=== PATIENT | male | born 2000 | race African-American/Black ===

== ENCOUNTER 2021-02-23 00:36 | Emergency (ER) | payer BC, SELFPAY ==
--- NOTE | ~2021-02-23 | XR_ITS ---
XR shoulder LT min 2V DATE: 02/23/2021 00:55 INDICATION: Left shoulder injury, pain TECHNIQUE: 4 views COMPARISON: None FINDINGS: No fracture or dislocation, periosteal reaction or bone destruction or abnormal soft tissue calcification. IMPRESSION: Normal examination Reviewed, dictated and finalized at location A. IMPRESSION: Normal examination
[2021-02-23 00:38] VITALS: BP 116/75; PULSE 88; RESP 18; TEMP 36.6; O2SAT 98
--- NOTE | 2021-02-23 00:48 | ED.UPPEXIN ---
HPI - Extremity Injury (Upper) General Chief Complaint: Extremity Injury, Upper Stated Complaint: left shoulder injury Time Seen by Provider: 02/23/21 00:49 Source: patient Mode of arrival: ambulatory Limitations: no limitations History of Present Illness HPI narrative: Patient is a 20-year-old male presenting for evaluation of left shoulder pain. Patient was reportedly wrestling with his friend when he felt his shoulder dislocate. States that he popped it back into place. Patient still with soreness in the left shoulder. Pain is dull, aching in nature. No focal numbness or weakness. No head injury, neck pain or loss of consciousness. Patient has been ambulatory. No lower extremity pain. Right hand dominant. Related Data Allergies Allergy/AdvReac Type Severity Reaction Status Date / Time No Known Allergies Allergy Verified 02/23/21 01:00 Review of Systems Review of Systems: CONSTITUTIONAL: Denies fever CARDIOVASCULAR: Denies chest pain RESPIRATORY: Denies cough or dyspnea. GASTROINTESTINAL: Denies abdominal pain SKIN: Denies rash MUSCULOSKELETAL: Denies back pain, reports left shoulder pain NEUROLOGIC: Denies headache [facility] Social History Social History (Updated 02/23/21 @ 01:04 by Yudith Nicholas MD) Smoking status: Never smoker Alcohol intake: current Substance use: current Substance use type: marijuana Gender identity (if verbalized by the patient): Male Exam Narrative: GENERAL: Awake, alert, conversant HEAD: Normocephalic, atraumatic. EYES: PERRLA and EOMI. ENT: Nares clear, no rhinorrhea or epistaxis. Mucous membranes moist. NECK: Supple. CHEST: No respiratory distress, breathing even and non labored HEART: Regular rate, sinus rhythm ABDOMEN:Non distended, non tender EXTREMITIES: Decreased range of motion secondary to pain. No squaring off of the shoulder. No significant clavicular pain on exam. Intact sensation over the deltoid. Intact distal sensation. Radial pulse 2+. Normal range of motion at the left elbow, left wrist. SKIN: Warm, dry, no rash. NEURO:No focal deficits. Alert and oriented x3 Course Vital Signs Vital signs: Vital Signs Temperature 36.6 C 02/23/21 00:38 Pulse Rate 88 02/23/21 00:38 Respiratory Rate 18 02/23/21 00:38 Blood Pressure 116/75 02/23/21 00:38 Pulse Oximetry 98 02/23/21 00:38 Temperature 36.6 C 10 00:38 Pulse Rate 88 02/23/21 00:38 Respiratory Rate 18 02/23/21 00:38 Blood Pressure 116/75 02/23/21 00:38 Pulse Oximetry 98 10 00:38 MDM - Extremity Injury (Upper) MDM Narrative Medical decision making narrative: Patient presenting for evaluation of left shoulder pain. Concern for possible dislocation and relocation before arrival to the hospital. Imaging is normal. No evidence of dislocation. Patient is neurovascularly intact. Patient be placed in a sling. Given orthopedic follow-up. Advised to take anti-inflammatories for pain. Differential Diagnosis Differential diagnosis: Likely dislocation of shoulder and fracture of humerus Imaging Data My impression: Left shoulder x-ray: No acute dislocation, no acute osseous abnormality clavicles normal, no clavicular fracture Discharge Plan Discharge Clinical Impression: Left shoulder strain Patient Disposition: Home, Self-Care Condition: Stable Instructions: How to Use a Sling (ED), Shoulder Sprain (ED) Additional Instructions: Please contact your primary care physician and orthopedic physician listed on this sheet for follow up from this visit. Please do not do any heavy lifting with the extremity. If you experience worsening pain, vomiting that does not stop, bleeding complications, chest pain, shortness of breath, inability to tolerate your medications please return for reassessment. Take any prescribed medications as directed Stay well-hydrated For fever and pain, you may take Tylenol 500 mg - 1000 mg every 8 hours, and Ibuprofen 400
== END 2021-02-23 01:11 | disposition home or self-care (01) ==
PROVIDERS: Emergency Provider Emergency Medicine
DX: S46.912A Strain of unspecified muscle, fascia and tendon at shoulder and upper arm level, left arm, initial encounter (principal); Y93.83 Activity, rough housing and horseplay; X50.9XXA Other and unspecified overexertion or strenuous movements or postures, initial encounter
CPT/HCPCS: 73030; 99283; A4565

== ENCOUNTER 2022-06-02 05:11 | Emergency (ER) | payer BC, SELFPAY ==
--- NOTE | ~2022-06-02 | CT_ITS ---
EXAMINATION: CT abdomen pelvis wo con DATE: 06/02/2022 07:39 INDICATION: Left flank pain. Nausea. TECHNIQUE: Computed tomography (CT) of the abdomen and pelvis was performed without intravenous contr ast. Automated exposure control and iterative reconstruction technique were employed. The dose-length product was 270.85 mGy-cm. COMPARISON: None. FINDINGS: The visualized portions of the lung bases are clear without pneumonia or pleural effusion. The heart size is normal. No pericardial effusion. The liver, gallbladder, spleen, pancreas, adrenal glands, and right kidney are normal. There is mild left hydronephrosis and hydroureter. There is a 3 mm stone in distal left ureter. There are no dilated loops of bowel. The appendix is normal. There ar e no pathologically enlarged lymph nodes. There is no free intraperitoneal fluid. There is mild lumba r spondylosis. IMPRESSION: 1. 3 mm stone in distal left ureter with mild left hydronephrosis and hydroureter. Reviewed, dictated and finalized at location A. TROTYPER IMPRESSION: 1. 3 mm stone in distal left ureter with mild left hydronephrosis and hydrouret er.
[2022-06-02 05:14] VITALS: BP 112/94; PULSE 75; RESP 18; TEMP 36.6; O2SAT 100
[2022-06-02 05:57] LABS: Appearance Urine Clear (Clear); Basophils Percent Auto 0.2 % (0.2-1.2); Bilirubin Urine Negative (Negative); Blood Urine 1+ (Negative); Color Urine Yellow (Yellow); Eosinophils Absolute Auto 0.2 K/mm3 (0-0.3); Eosinophils Percent Auto 1.8 % (0-4.4); Glucose Urine UA Negative (Negative); Hematocrit 43.8 % (42.0-52.0); Hemoglobin 14.9 g/dL (14.0-18.0); Immature Granulocyte Absolute 0.03 K/mm3 (0.00-0.031); Immature Granulocyte Percent A 0.3 % (0-0.5); Ketones Urine Trace mg/dL (Negative); Leukocyte Esterase Ur Negative LEU/UL (Negative); Mean Platelet Volume 10.6 fl (7.4-10.4); Monocytes Percent Auto 11.3 % (2.6-8.5); Neutrophils Absolute Auto 4.9 K/mm3 (1.3-6.7); Neutrophils Percent Auto 56.4 % (45.5-73.1); Nitrate Urine Negative (Negative); Platelet Count Result 181 k/mm3 (150-375); Protein Urine Negative (Negative); Red Blood Count 4.66 M/mm3 (4.6-6.20); Specific Grav Ur >= 1.030 (1.001-1.035); Urobilinogen Urine 0.2 mg/dL (<2.0); White Blood Count 8.7 K/mm3 (4.5-10.0); pH Urine 5.5 (5.0-9.0)
[2022-06-02 06:03] LABS: Mucus Urine Rare /lpf; RBC Urine 51-75 /hpf (0-2); WBC Urine 0-3 /hpf
[2022-06-02 06:04] LABS: Add Urine Microscopic? YES
[2022-06-02 06:07] LABS: Alanine Aminotransferase 29 U/L (6-50); Albumin Level 4.1 g/dL (3.5-5.1); Alkaline Phosphatase 68 U/L (38-126); Anion Gap 7 mmol/L (8-16); Aspartate Amino Transferase 58 U/L (17-59); Bilirubin,Total 1.1 mg/dL (0.2-1.3); Blood Urea Nitrogen 17 mg/dL (9-20); Carbon Dioxide 28 mmol/L (22-30); Chloride 106 mmol/L (98-107); Estimated CRCL calculation 92 ml/min; Estimated Glomerular Filt Rate > 60; Glucose 120 mg/dL (65-110); Lipase 75 U/L (23-300); Sodium 141 mmol/L (137-145)
--- NOTE | 2022-06-02 07:28 | ED.ABDPAIN ---
HPI - Abdominal Pain General Chief Complaint: Abdominal Pain Stated Complaint: abdominal pain Time Seen by Provider: 06/02/22 06:55 History of Present Illness HPI narrative: Patient is a 22-year-old male who presents ER with sudden onset left-sided abdominal pain beginning couple hours prior to arrival. Sharp. Radiates to his back. No radiation into the groin. No urinary frequency urgency or dysuria. Denies fevers or chills or sweats. Possibly little more gas than usual. Has not had similar pain. He has found no alleviating factors. Related Data Allergies Allergy/AdvReac Type Severity Reaction Status Date / Time No Known Allergies Allergy Verified 06/02/22 05:12 Review of Systems Review of Systems: All systems reviewed & are unremarkable except as noted in HPI and below Constitutional: Constitutional: Denies chills, Denies fatigue and Denies fever(s) Cardiovascular: Cardiovascular: Reports no additional cardiovascular complaints Respiratory: Respiratory: Reports no additional respiratory complaints Gastrointestinal: Gastrointestinal: Reports abdominal pain, Denies diarrhea, Reports nausea and Reports vomiting Genitourinary: Genitourinary: Denies hematuria, Denies dysuria, Denies testicular pain and Denies urinary frequency [facility] Past Medical History Medical History (Updated 06/02/22 @ 08:22 by Awais Luna MD) No pertinent past medical history Surgical History Surgical History (Updated 06/02/22 @ 07:30 by Awais Luna MD) No pertinent past surgical history Social History Social History (Updated 02/23/21 @ 01:04 by Yudith Nicholas MD) Smoking status: Never smoker Alcohol intake: current Substance use: current Substance use type: marijuana Gender identity (if verbalized by the patient): Male Exam Narrative: GENERAL: Uncomfortable-appearing, well-nourished, and in no acute distress. HEAD: Normocephalic, atraumatic. ENT: Mucous membranes moist. CHEST: Clear to auscultation. No respiratory distress. HEART: Regular rate and rhythm. Normal peripheral pulses. ABDOMEN: Soft, mild left lower quadrant discomfort without guarding or rebound, nondistended, no CVA tenderness. EXTREMITIES: Normal range of motion. No edema. SKIN: Warm, dry, no rash. NEURO: Alert and oriented x3. PSYCH: Normal mood and affect. Course Course Emergency Course: Patient feeling improved after Toradol and Zofran. Receiving fluids. Discussed imaging and lab results. Discharge home with urine strainer. Discussed return precautions and patient verbalized understanding. Patient has a small 3 mm stone that should pass on its own. Vital Signs Vital signs: Vital Signs Temperature 97.8 F 06/02/22 05:14 Pulse Rate 75 06/02/22 05:14 Respiratory Rate 18 06/02/22 05:14 Blood Pressure 112/94 H 06/02/22 05:14 Pulse Oximetry 100 06/02/22 05:14 Oxygen Delivery Room Air 06/02/22 05:14 Temperature 97.8 F 06/02/22 05:14 Pulse Rate 75 06/02/22 05:14 Respiratory Rate 18 06/02/22 05:14 Blood Pressure 112/94 H 06/02/22 05:14 Pulse Oximetry 100 06/02/22 05:14 Oxygen Delivery Room Air 06/02/22 05:14 MDM - Abdominal Pain Lab Data 06/02/22 05:51 06/02/22 05:51 Labs: Lab Results 06/02/22 06/02/22 06/02/22 Range/Units 05:51 05:51 05:51 WBC 8.7 (4.5-10.0) K/mm3 RBC 4.66 (4.6-6.20) M/mm3 Hgb 14.9 (14.0-18.0) g/dL Hct 43.8 (42.0-52.0) % MCV 94.0 (80-100) fl MCH 32.0 (26-34) pg MCHC 34.0 (32-36) g/dl RDW 13.0 (11.5-14.5) % Plt Count 181 (150-375) k/mm3 MPV 10.6 H (7.4-10.4) fl Immature Gran % (Auto) 0.3 (0-0.5) % Neut % (Auto) 56.4 (45.5-73.1) % Lymph % (Auto) 30.0 (18.3-44.2) % Se[place] % (Auto) 11.3 H (2.6-8.5) % Eos % (Auto) 1.8 (0-4.4) % Baso % (Auto) 0.2 (0.2-1.2) % Lymph # (Auto) 2.60 (0.9-3.2) K/mm3 [place]vier # (Auto) 1.0 H (0.1-0.6) K/mm3 Eos # (A
[2022-06-02] MEDS: ONDANSETRON INJ 4 MG/2 ML VIAL IV PUSH (08:00)
[2022-06-02] MEDS: KETOROLAC 30 MG/ML VIAL (*BKC) IV PUSH (08:00)
[2022-06-02] MEDS: SODIUM CHLORIDE 0.9% IV 1,000 ML 999 ML IV CONT (08:01)
== END 2022-06-02 09:15 | disposition home or self-care (01) ==
PROVIDERS: Emergency Medicine; Emergency Provider Emergency Medicine
DX: N13.2 Hydronephrosis with renal and ureteral calculous obstruction (principal)
CPT/HCPCS: 36415; 74176; 80053; 81001; 83690; 85025; 96374; 96375; 99284; J1885; J2405; J7030